=== PATIENT | female | born 1950 | race African-American/Black ===

== ENCOUNTER 2022-01-04 14:03 | Outpatient (CLI) | payer MEDICARE | END 2022-01-04 14:04 | disposition home or self-care (01) | LOC: RAD 14:03 | PROVIDERS: ATTEND Urology | DX: J98.11 Atelectasis (principal); N20.0 Calculus of kidney | CPT/HCPCS: 71046 ==

== ENCOUNTER 2023-08-09 13:35 | Inpatient (IN) | payer MEDICARE ==
[2023-08-09 14:06] LABS: #Basophils 0.1 thou/uL (0.0-0.2); #Eosinphils 0.1 thou/uL (0.0-0.7); #Monocytes 0.9 thou/uL (0.11-0.59); #Neutrophils 6.3 thou/uL (1.40-6.50); %Basophils 1.2 % (0.0-1.0); %Lymphocytes 19.7 % (21.0-51.0); %Monocytes 10.1 % (0.0-10.0); %Neutrophils 67.7 % (42.0-75.0); Hemoglobin 6.5 g/dL (12.0-16.0); Mean Corpuscular HGB CONC 28.3 g/dL (32.0-36.0); Mean Corpuscular Hemoglobin 19.2 pg (27.0-31.0); Mean Corpuscular Volume 67.8 fl (78.0-98.0); Mean Platelet Volume 9.2 fL (7.4-10.4); Platelet Count 464 10x3/uL (130-400); RBC Distribution Width 18.4 % (11.5-14.5); Red Blood Cell (RBC) Count 3.39 mill/uL (4.20-5.40); White Blood Cell (WBC) Count 9.2 10x3/uL (4.8-10.8)
[2023-08-09 14:23] LABS: ALT (SGPT) 14 U/L (8-55); AST (SGOT) 18 U/L (5-34); Alkaline Phosphatase 94 U/L (40-110); Anion Gap 14 mmol/L (10-20); BUN (Urea Nitrogen) 16 mg/dL (9.8-20.1); Bilirubin, Total 0.3 mg/dL (0.2-1.2); Calc. Creatinine Clearance 0 mL/min (70-130); Carbon Dioxide 21 mmol/L (23-31); Chloride 102 mmol/L (98-107); Estimated GFR 75; Globulin 4.3 g/dL (2.4-3.5); Glucose 102 mg/dL (83-110); Potassium 3.7 mmol/L (3.5-5.1); Protein, Total 8.3 g/dL (5.8-8.1); Sodium 133 mmol/L (136-145)
[2023-08-09 15:20] LABS: CellaVision Operator ID LAB.KB; Hypochromia SLIGHT = 6-15 cells HPF (0-5); Microcytosis MODERATE=15-30 cells HPF (0-5); Platelet Adequacy Comment Platelets Increased; Polychromasia SLIGHT = 2-3 cells HPF (0-2)
[2023-08-09 16:00] LABS: Bilirubin Negative (Negative); Blood, Urine Negative (Negative); CAUTI Indications for Culture Alt mental st,lethar; Clarity Clear (Clear); Glucose, Urine (Dipstick) Normal (Negative); Ketone, Urine Negative (Negative); Leukocyte 500 Leu/uL (Negative); Nitrite 1+ (Negative); Protein, Urine (Dipstick) Negative (Neg-Trace); RBC/HPF 0-3 HPF (0-3); Specific Gravity, Urine 1.006 (1.002-1.036); Squamous Epithelial None Seen HPF (0-3); Urobilinogen Normal mg/dL (Less than 2)
[2023-08-09 16:02] LABS: Bacteria/HPF 1+ HPF (None Seen); Urine Culture Reflex Yes Yes
[2023-08-09 16:05] LABS: Troponin I 0.085 ng/mL (< 0.028)
[2023-08-09] MEDS ORDERED: diphenhydrAMINE 50 MG CAP PO PRN (16:54)
[2023-08-09] MEDS ORDERED: hydrALAZINE 20 MG/ML VIAL SLOW IVP PRN (16:54)
[2023-08-09] MEDS ORDERED: Acetaminophen 325 MG TAB PO PRN (16:54)
[2023-08-09 17:34] VITALS: BMI 30.5
[2023-08-10 06:40] LABS: #Basophils 0.1 thou/uL (0.0-0.2); #Eosinphils 0.2 thou/uL (0.0-0.7); #Neutrophils 4.3 thou/uL (1.40-6.50); %Basophils 1.1 % (0.0-1.0); %Eosinophils 2.9 % (0.0-10.0); %Monocytes 12.8 % (0.0-10.0); Hematocrit 24.3 % (36.0-47.0); Hemoglobin 6.9 g/dL (12.0-16.0); Mean Corpuscular HGB CONC 28.4 g/dL (32.0-36.0); Mean Corpuscular Hemoglobin 20.1 pg (27.0-31.0); Mean Platelet Volume 9.1 fL (7.4-10.4); Platelet Count 395 10x3/uL (130-400); RBC Distribution Width 19.4 % (11.5-14.5); Red Blood Cell (RBC) Count 3.43 mill/uL (4.20-5.40)
[2023-08-10 07:10] LABS: Mean Corpuscular Volume 70.8 fl (78.0-98.0)
[2023-08-10 07:19] LABS: Anion Gap 11 mmol/L (10-20); BUN (Urea Nitrogen) 14 mg/dL (9.8-20.1); Calc. Creatinine Clearance 76 mL/min (70-130); Calcium 8.9 mg/dL (7.8-10.44); Carbon Dioxide 22 mmol/L (23-31); Chloride 108 mmol/L (98-107); Estimated GFR 75; Glucose 91 mg/dL (83-110); Potassium 4.1 mmol/L (3.5-5.1); Sodium 137 mmol/L (136-145)
[2023-08-10] MEDS: Amlodipine 5 MG TAB PO SCH (10:54)
[2023-08-10] MEDS: Hydrochlorothiazide 25 MG TAB PO SCH (10:54)
[2023-08-10] MEDS ORDERED: Iron, Sodium Ferric Gluconate 250 MG in Sodium Chloride 0.9% 250 ML 250 ML IVPB SCH (11:00)
[2023-08-10] MEDS ORDERED: GoLYTELY 4,000 ml Bottle PO SCH (17:00)
[2023-08-11 05:08] LABS: #Basophils 0.1 thou/uL (0.0-0.2); #Eosinphils 0.2 thou/uL (0.0-0.7); #Neutrophils 5.2 thou/uL (1.40-6.50); %Basophils 1.4 % (0.0-1.0); %Eosinophils 2.5 % (0.0-10.0); %Lymphocytes 21.5 % (21.0-51.0); %Monocytes 11.8 % (0.0-10.0); %Neutrophils 62.6 % (42.0-75.0); Hematocrit 27.2 % (36.0-47.0); Hemoglobin 8.2 g/dL (12.0-16.0); Mean Corpuscular HGB CONC 30.1 g/dL (32.0-36.0); Mean Corpuscular Hemoglobin 21.8 pg (27.0-31.0); Mean Corpuscular Volume 72.1 fl (78.0-98.0); Platelet Count 356 10x3/uL (130-400); RBC Distribution Width 21.5 % (11.5-14.5); Red Blood Cell (RBC) Count 3.77 mill/uL (4.20-5.40); White Blood Cell (WBC) Count 8.3 10x3/uL (4.8-10.8)
[2023-08-11 05:28] LABS: Anion Gap 12 mmol/L (10-20); BUN (Urea Nitrogen) 15 mg/dL (9.8-20.1); Calc. Creatinine Clearance 87 mL/min (70-130); Calcium 8.5 mg/dL (7.8-10.44); Carbon Dioxide 23 mmol/L (23-31); Chloride 109 mmol/L (98-107); Estimated GFR 89; Glucose 93 mg/dL (83-110); Sodium 141 mmol/L (136-145)
[2023-08-11 06:28] LABS: Anisocytosis MODERATE=16-30 cells HPF (0-5); CellaVision Operator ID lab.sh2; Hypochromia SLIGHT = 6-15 cells HPF (0-5); Microcytosis SLIGHT = 6-15 cells HPF (0-5); Ovalocytes SLIGHT = 2-5 cells HPF (0-1); Platelet Adequacy Comment Platelets Normal; Polychromasia MODERATE = 3-4 cells HPF (0-2); Target Cells MODERATE= 6-15 cells HPF (0-1)
[2023-08-11] MEDS ORDERED: PROPOFOL 80 ML ONE (08:58)
[2023-08-11] MEDS ORDERED: Lidocaine 2% PF 5 ML VIAL ONE (08:58)
[2023-08-11] MEDS ORDERED: Glycopyrrolate 0.2 MG/ML 5 ML SYRINGE ONE (09:30)
[2023-08-11] MEDS: Potassium Chloride 20 MEQ TAB PO SCH ×2 (12:40→13:56)
[2023-08-11] MEDS ORDERED: Hydrochlorothiazide 25 MG TAB PO SCH (13:00)
[2023-08-11] MEDS ORDERED: Amlodipine 10 MG TAB PO SCH (13:00)
[2023-08-11] MEDS: Amlodipine 5 MG TAB PO SCH (13:43)
[2023-08-11] MEDS: Hydrochlorothiazide 25 MG TAB PO SCH (13:43)
[2023-08-11] MEDS ORDERED: predniSONE 50 MG TAB PO SCH (20:00)
[2023-08-12] MEDS ORDERED: predniSONE 50 MG TAB PO SCH ×2 (02:00→08:00)
[2023-08-12] MEDS: Hydrochlorothiazide 25 MG TAB PO SCH (07:45)
[2023-08-12] MEDS: Amlodipine 5 MG TAB PO SCH (07:46)
[2023-08-12] MEDS ORDERED: Ferrous Fumarate 324 MG TAB PO SCH (08:00)
[2023-08-12] MEDS ORDERED: diphenhydrAMINE 50 MG CAP PO SCH (08:00)
[2023-08-12] MEDS ORDERED: Potassium Chloride 20 MEQ TAB PO SCH (08:30)
[2023-08-12] MEDS ORDERED: FLU VACC QS2023(65UP)/MF59C/PF 60 MCG/0.5 ML SYRINGE IM ONE (09:00)
[2023-08-12 09:13] LABS: #Monocytes 0.1 thou/uL (0.11-0.59); #Neutrophils 8.8 thou/uL (1.40-6.50); %Basophils 0.3 % (0.0-1.0); %Monocytes 0.8 % (0.0-10.0); %Neutrophils 89.1 % (42.0-75.0); Hematocrit 30.9 % (36.0-47.0); Hemoglobin 9.3 g/dL (12.0-16.0); Mean Corpuscular HGB CONC 30.1 g/dL (32.0-36.0); Mean Corpuscular Hemoglobin 21.8 pg (27.0-31.0); Mean Corpuscular Volume 72.5 fl (78.0-98.0); Mean Platelet Volume 9.3 fL (7.4-10.4); Platelet Count 422 10x3/uL (130-400); Red Blood Cell (RBC) Count 4.26 mill/uL (4.20-5.40); White Blood Cell (WBC) Count 9.9 10x3/uL (4.8-10.8)
[2023-08-12 09:31] LABS: Anion Gap 14 mmol/L (10-20); BUN (Urea Nitrogen) 16 mg/dL (9.8-20.1); Calc. Creatinine Clearance 76 mL/min (70-130); Calcium 9.6 mg/dL (7.8-10.44); Carbon Dioxide 20 mmol/L (23-31); Chloride 103 mmol/L (98-107); Estimated GFR 77; Glucose 125 mg/dL (83-110); Potassium 4.1 mmol/L (3.5-5.1); Sodium 133 mmol/L (136-145)
[2023-08-12 11:38] VITALS: BP 165/66; TEMP 98.1
[2023-08-12] MEDS ORDERED: Iopamidol-370 76% 500 ML MDV (1 ML CHARGE) ONE (12:44)
== END 2023-08-12 16:05 | disposition home or self-care (01) | DRG 812 ==
LOC: ERS 13:35 → SJJU 15:40 → OBSVTOIN 08-10 15:50
PROVIDERS: ADMIT Internal Medicine; ATTEND Hospitalist
PROC: 30233N1 Transfusion of Nonautologous Red Blood Cells into Peripheral Vein, Percutaneous Approach (ICD-10-PCS; 2023-08-09)
PROC: 0DB48ZX Excision of Esophagogastric Junction, Via Natural or Artificial Opening Endoscopic, Diagnostic (ICD-10-PCS; principal; 2023-08-11)
PROC: 0DBK8ZZ Excision of Ascending Colon, Via Natural or Artificial Opening Endoscopic (ICD-10-PCS; 2023-08-11)
PROC: 0DBM8ZZ Excision of Descending Colon, Via Natural or Artificial Opening Endoscopic (ICD-10-PCS; 2023-08-11)
PROC: 0DBE8ZX Excision of Large Intestine, Via Natural or Artificial Opening Endoscopic, Diagnostic (ICD-10-PCS; 2023-08-11)
DX: D50.9 Iron deficiency anemia, unspecified (principal); K21.00 Gastro-esophageal reflux disease with esophagitis, without bleeding; K44.9 Diaphragmatic hernia without obstruction or gangrene; K63.5 Polyp of colon; K57.30 Diverticulosis of large intestine without perforation or abscess without bleeding; K63.89 Other specified diseases of intestine; I48.91 Unspecified atrial fibrillation; Z79.01 Long term (current) use of anticoagulants; I10 Essential (primary) hypertension; N20.0 Calculus of kidney; E78.5 Hyperlipidemia, unspecified; Z98.890 Other specified postprocedural states; Z88.0 Allergy status to penicillin; Z91.041 Radiographic dye allergy status; Z79.899 Other long term (current) drug therapy
CPT/HCPCS: 36415; 36416; 36430; 71045; 71260; 74177; 80048; 80053; 81001; 82274; 82378; 82728; 84484; 85025; 86850; 86900; 86901; 87077; 87086; 87186; 88305; 93005; 96374; G0378; J2001; J2704; J2916; J7050; J7512; P9016; Q9967

== ENCOUNTER 2024-02-21 12:14 | Emergency (ER) | payer MEDICARE ==
[2024-02-21 13:30] LABS: #Basophils 0.08 10x3/uL (0.0-0.2); %Lymphocytes 28.1 % (21.0-51.0); %Monocytes 10.1 % (0.0-10.0); %Neutrophils 58.7 % (42.0-75.0); Hematocrit 43.6 % (36.0-47.0); Hemoglobin 14.3 g/dL (12.0-16.0); Mean Corpuscular HGB CONC 32.8 g/dL (32.0-36.0); Mean Corpuscular Hemoglobin 28.3 pg (27.0-31.0); Mean Corpuscular Volume 86.2 fL (78.0-98.0); Mean Platelet Volume 9.6 fL (7.4-10.4); Platelet Count 280 10x3/uL (130-400); RBC Distribution Width 14.2 % (11.5-14.5); Red Blood Cell (RBC) Count 5.06 mill/uL (4.20-5.40)
[2024-02-21 13:49] LABS: ALT (SGPT) 22 U/L (8-55); AST (SGOT) 26 U/L (5-34); Albumin 3.8 g/dL (3.4-4.8); Alkaline Phosphatase 101 U/L (40-110); Anion Gap 11 mmol/L (10-20); BUN (Urea Nitrogen) 10 mg/dL (9.8-20.1); Bilirubin, Total 0.4 mg/dL (0.2-1.2); Calc. Creatinine Clearance 0 mL/min (70-130); Calcium 10.1 mg/dL (7.8-10.44); Carbon Dioxide 28 mmol/L (23-31); Chloride 103 mmol/L (98-107); Estimated GFR 80; Globulin 5.1 g/dL (2.4-3.5); Glucose 98 mg/dL (83-110); Potassium 3.9 mmol/L (3.5-5.1); Protein, Total 8.9 g/dL (5.8-8.1); Sodium 138 mmol/L (136-145)
[2024-02-21 13:54] LABS: Troponin I 0.056 ng/mL (< 0.028)
[2024-02-21] MEDS ORDERED: Aspirin Chewable 81 MG TAB ONE (14:29)
== END 2024-02-21 16:15 | disposition home or self-care (01) ==
LOC: ERS 12:14
DX: R00.2 Palpitations (principal); R00.0 Tachycardia, unspecified; I21.4 Non-ST elevation (NSTEMI) myocardial infarction; I10 Essential (primary) hypertension; E78.5 Hyperlipidemia, unspecified; I48.91 Unspecified atrial fibrillation; Z79.01 Long term (current) use of anticoagulants; Z79.899 Other long term (current) drug therapy
CPT/HCPCS: 71045; 80053; 83880; 84484; 85025; 93005; 94760

== ENCOUNTER 2024-09-03 10:06 | Outpatient (CLI) | payer MEDICARE ==
[2024-09-03] MEDS ORDERED: Iopamidol 370 76% 100 ML VIAL ONE (11:35)
== END 2024-09-03 10:07 | disposition home or self-care (01) ==
LOC: CT 10:06
PROVIDERS: ATTEND Urology
DX: N20.0 Calculus of kidney (principal); N39.0 Urinary tract infection, site not specified; D17.71 Benign lipomatous neoplasm of kidney
CPT/HCPCS: 36415; 74178; 82565